=== PATIENT | female | born 1990 | race Two or more races ===

== ENCOUNTER → 2016-10-12 | Outpatient (CLI) | payer OTHER ==
--- NOTE | 2016-10-12 18:27 | REP ---
Clinical: Trauma. Pain. Technique: AP and angled views of the clavicle. Findings: There is evidence for a mid clavicular shaft fracture without extensive overlying soft tissue swelling. Impression: Mid clavicular shaft fracture. Signed by Carmine Rousseau MD 10/12/2016 06:18 P
--- NOTE | 2016-10-12 18:32 | REP ---
Clinical: Trauma. Pain. Technique: Internal rotation, external rotation, and Y view left shoulder. Findings: There is a mid clavicular shaft fracture with mild foreshortening. The acromioclavicular joint and glenohumeral joints appear intact and normal. Impression: Mid clavicular shaft fracture . Signed by Carmine Rousseau MD 10/12/2016 06:23 P
== END ==
LOC: M LRY 17:48
PROVIDERS: ATTEND Physician Assistant
DX: S42.025A Nondisplaced fracture of shaft of left clavicle, initial encounter for closed fracture (principal); X58.XXXA Exposure to other specified factors, initial encounter; Y92.9 Unspecified place or not applicable; Y93.9 Activity, unspecified; Y99.9 Unspecified external cause status